=== PATIENT | female | born 1975 | race Caucasian/White ===

== ENCOUNTER 2020-07-05 07:10 | Day surgery (SDC) | payer OTHER ==
[~2020-07-05] VITALS: Ht 172.7 cm; Wt 128.0 kg
[~2020-07-05 07:10] MED LIST: CHOLESTYRAMINE P4 GM PO; MULTI VITAMIN1 EACH PO; OMEPRAZOLE20 MG PO; TYLENOL325 MG PO
--- NOTE | 2020-07-05 08:42 | NUR ---
07/05/20 0842 Clotilde Mckeon 0854 PATIENT ARRIVES TO PACU AWAKE BUT DROWSY. DENIES PAIN OR NAUSEA. RESP EVEN AND UNLABORED, ROOM AIR SATS >90%.
--- NOTE | 2020-07-05 10:08 | NUR ---
PT TAKEN FOR EGD. WAITING, SEEMS COMFORTABLE NO ISSUES, NEEDS OR CONCERNS. GAVE BLESSING WILL FOLLOW
--- NOTE | 2020-07-06 09:00 | OR ---
[facility] [address], [place] [address] Signed DATE OF OPERATION: 07/05/2020 SURGEON: Sharri Oshea MD PREOPERATIVE DIAGNOSES: 1. Epigastric abdominal pain. 2. Gastroesophageal reflux disease. 3. Irritable bowel syndrome. 4. History of Helicobacter pylori recently treated. 5. Recent weight gain (60 pounds). POSTOPERATIVE DIAGNOSES: 1. Mild gastroduodenitis. 2. Small hiatal hernia. 3. Probable healed duodenal ulcer. PROCEDURE: EGD with CLOtest and biopsies of the pyloric bulb and antrum. ESTIMATED BLOOD LOSS: None. INDICATIONS: Trinh is a 44-year-old female, who over the last year has been having trouble with epigastric abdominal pain and acid reflux. There was also some concern about irritable bowel syndrome. She certainly was eating more to relieve the pain. That suggests she had a duodenal ulcer. She actually gained 60 pounds. She had been to her primary care provider. She came back positive for Helicobacter pylori. She just finished up her antibiotic treatment. She remains on the omeprazole. Overall, she is feeling much better. She still has symptoms lying supine at night. She had been asked to see me for an upper endoscopy. I had met with Trinh in the office and I gave her a pamphlet on upper endoscopy. She understands the nature of the test along with the risks including, but not limited to gas bloating, crampy abdominal pain, bleeding, perforation requiring surgery, and missed diagnosis. She also understands the need for IV conscious sedation. 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 She expressed understanding and would like to proceed. PROCEDURE NOTE: Trinh was taken into endoscopy suite and placed in the supine semi-recumbent position. She was given a total of 9 mg of Versed and 125 mcg of fentanyl. The posterior Electronically Signed By: SHARRI OSHEA MD 07/06/20 0900 PATIENT NAME: TRINH ROSALES OPERATIVE REPORT DATE OF : 75 REPORT #: [id number] PHYSICIAN: SHARRI OSHEA MD PCP: GIANFRANCO MORALES MD REPORT IS CONFIDENTIAL AND NOT TO BE RELEASED WITHOUT AUTHORIZATION [facility] [address], [place] [address] Signed oropharynx was anesthetized with lidocaine spray. A bite block was carefully placed. The adult gastroscope was introduced and advanced out into the third portion of the duodenum without difficulty. The duodenum was unremarkable. However, the pyloric channel showed what probably is a healed duodenal ulcer. Just a little irritation in the pyloric channel and little patchy irritation in the antrum. Consequently, she probably had some resolving gastroduodenitis along with a resolved duodenal ulcer. We went ahead and took a biopsy of the pyloric bulb along with the antrum for pathologic review. In addition, biopsy came out of the antrum for CLOtest. Upon retroflexion of the scope, the incisura body and fundus of the stomach were unremarkable. She does have just a small hiatal hernia. She was waking up at that time and moving around, we really hiatal hernia. She has very minimal disruption to the Z-line. No Rahman's mucosa. No distal esophagitis. The middle and upper esophagus were unremarkable. After this, the gas had been suctioned out and the gastroscope removed. Overall, Trinh tolerated the procedure well. However in the future, she should strongly consider monitored anesthesia care for any colonoscopy. If she has recall of this procedure, she should consider monitored anesthesia care for her upper endoscopies as well. I will see her back in the office in a week or so for followup. Sharri Oshea MD ALB/MODL /[id number] cc: MD Gianfranco Stauffer MD Copies: SHARRI OSHEA MD, ROBERT D DMD ~ Electronically Signed By: SHARRI OSHEA MD 07/06/20 0900 PATIENT NAME: TRINH ROSALES OPERATIVE REPORT DATE OF : 75 REPORT #: [id number] PHYSICIAN: SHARRI OSHEA MD PCP: GIANFRANCO MORALES MD REPORT IS CONFIDENTIAL AND NOT TO BE RELEASED WITHOUT AUTHORIZATION
--- NOTE | 2020-07-06 19:42 | PATH ---
[facility] [address], [place] [address] Signed SPECIMEN(S): A DUODENAL BULB BIOPSY SPECIMEN(S): B ANTRUM/PYLORUS BIOPSY SPECIMEN SOURCE: A. DUODENAL BULB BIOPSY B. ANTRUM/PYLORUS BIOPSY CLINICAL HISTORY: Reflux epigastric pain. History H. pylori. Esophagogastroduodenoscopy. MICROSCOPIC DESCRIPTION: Histologic sections of all submitted blocks are examined by light microscopy. These findings, together with the gross examination, support the pathologic diagnosis. FINAL PATHOLOGIC DIAGNOSIS: A. Duodenum, bulb, biopsy: - Duodenal mucosa with Blane's gland hyperplasia and focal gastric surface cell metaplasia. - Negative for increased intraepithelial lymphocytes. - Negative for dysplasia or malignancy. B. Stomach, antrum, pylorus, biopsy: - Antral mucosa with chronic, inactive gastritis and reactive gastropathy. - Negative for Helicobacter organisms on HE stain. - Negative for dysplasia or malignancy. - See comment. COMMENT: Regarding specimen B: An H. pylori immunohistochemical stain (with appropriately straining controls) is pending and will be reported in an addendum. NAL:NRT:cml:C2NR GROSS DESCRIPTION: Two specimens are received in two containers, labeled "SS." A. The specimen, labeled "SS, duodenum biopsy," is received in formalin and consists of one fournier soft tissue fragment that measures 0.2 cm in greatest dimension. The specimen is entirely submitted in cassette (A1). B. The specimen, labeled "SS, antrum biopsy," is received in formalin and consists of one fournier soft tissue fragment that measures 0.2 cm in greatest PATIENT NAME: SARAH ROSALES [facility] DATE OF : 75 REPORT #: [id number] PHYSICIAN: BRENNA BRIZUELA PCP: GIANFRANCO MORALES MD REPORT IS CONFIDENTIAL AND NOT TO BE RELEASED WITHOUT AUTHORIZATION [facility] [address] [place] [address] Signed dimension. The specimen is entirely submitted in cassette (B1). JS (under the direct supervision of a pathologist) The Gross Description was prepared using a voice recognition system. The report was reviewed for accuracy; however, sound-alike word errors, addition and/or deletions may occur. If there is any question about this report, please contact Client Services. PERFORMING LABORATORY: The technical component was performed by [facility] [address] ([employer] Engraver: Marielena Rich MD; CLIA# [id number]). Professional interpretation was performed by [facility], [address] [address] (CLIA# [id number]). Diagnostician: Sridevi Jovel MD Pathologist Electronically Signed 07/06/2020 Copies: ~ PATIENT NAME: SARAH ROSALES [facility] DATE OF : 75 REPORT #: [id number] PHYSICIAN: [facility] PATHOLOG[facility] PCP: GIANFRANCO MORALES MD REPORT IS CONFIDENTIAL AND NOT TO BE RELEASED WITHOUT AUTHORIZATION
== END 2020-07-05 09:10 | disposition home or self-care (01) ==
LOC: DS 07:10 → OPS 07:10 → DS 08:15 → OPS 09:10
PROVIDERS: ATTEND Colon & Rectal Surgery
PROC: 0DB98ZZ Excision of Duodenum, Via Natural or Artificial Opening Endoscopic (ICD-10-PCS; principal; 2020-07-05 08:15)
DX: K21.9 Gastro-esophageal reflux disease without esophagitis (principal); K58.0 Irritable bowel syndrome with diarrhea; K29.90 Gastroduodenitis, unspecified, without bleeding; K44.9 Diaphragmatic hernia without obstruction or gangrene; R63.5 Abnormal weight gain; Z87.19 Personal history of other diseases of the digestive system; Z68.41 Body mass index [BMI] 40.0-44.9, adult
CPT/HCPCS: 86677; 99153; G0500; J2250; J3010; J7121

== ENCOUNTER 2021-06-27 11:51 | Emergency (ER) | payer OTHER ==
[~2021-06-27] VITALS: Ht 172.7 cm; Wt 125.6 kg
[2021-06-27] MEDS ORDERED: VENTOLIN HFA18 GM INH ×2 (12:21→15:17)
[2021-06-27] MEDS ORDERED: QVAR REDIHALE10.6 GM INH (15:17)
== END 2021-06-27 15:30 | disposition home or self-care (01) ==
LOC: ED 11:51
DX: J45.909 Unspecified asthma, uncomplicated (principal); R53.83 Other fatigue; U09.9 Post COVID-19 condition, unspecified; Z87.891 Personal history of nicotine dependence; Z79.899 Other long term (current) drug therapy; Z88.5 Allergy status to narcotic agent; Z91.041 Radiographic dye allergy status
CPT/HCPCS: 36415; 71046; 71260; 80053; 83880; 85025; 85379; 99285-25; J2405; J7030; Q9967